=== PATIENT | female | born 1975 | race Caucasian/White ===

== ENCOUNTER 2018-01-01 19:02 | Emergency (ER) | payer MEDICAID ==
[2018-01-01] MEDS ORDERED: Metoclopramide 10 MG/2 ML SDV IVPUSH ONE (19:26)
[2018-01-01] MEDS ORDERED: Sodium Chloride 0.9% 500 ML IV SCH (19:30)
[2018-01-01] MEDS ORDERED: Morphine 4 MG/ML Syringe IVPUSH ONE (20:04)
[2018-01-01] MEDS ORDERED: diphenhydrAMINE 50 MG/ML SDV IVPUSH ONE ×2 (20:12→20:24)
[2018-01-01] MEDS ORDERED: methylPREDNISolone Sodium Succinate 125 MG/2 ML SDV ONE (20:13)
[2018-01-01] MEDS ORDERED: methylPREDNISolone Sodium Succinate 500 MG/4 ML SDV IVPUSH ONE (20:24)
[2018-01-01] MEDS ORDERED: EPINEPHrine 1 MG/ML SDV SUBCUT ONE (20:24)
[2018-01-01 20:30] LABS: CHLORIDE,CL 102 mmol/L (101-111); SODIUM,NA 137 mmol/L (135-145)
--- NOTE | 2018-01-01 20:32 | EDM.PDOC ---
ED HPI GENERAL MEDICAL PROBLEM - General Chief Complaint: Back Pain or Injury Stated Complaint: LEG PAIN [id number] Time Seen by Provider: 01/01/18 20:12 Source of Information: Reports: Patient History Limitations: Reports: No Limitations - History of Present Illness INITIAL COMMENTS - FREE TEXT/NARRATIVE: ED via wheelchair with sister. Patient report numbess and weakness to left leg after slipping and falling on to butt while getting out of car. Reports incontinet of bladder and bowel with fall. Incident at 1pm. Reports remote injury and fixation at L5 S1 with no deficit. Pain to low back. Worse with movement. Back Pain Score (Numeric/FACES): 10 - Related Data Allergies Allergy/AdvReac Type Severity Reaction Status Date / Time gabapentin Allergy Severe Anaphylactic Verified 01/01/18 19:19 Shock ketorolac [From Toradol] Allergy Severe Seizure Verified 01/01/18 19:19 metoclopramide [From Reglan] Allergy Severe Difficulty Verified 01/01/18 20:31 Breathing morphine Allergy Severe Shortness Verified 01/01/18 20:40 of Breath Home Meds: Home Meds Albuterol [Ventolin HFA] 2 puff INH Q4H PRN 01/01/18 [History] Fluticasone/Salmeterol [Advair 500-50] 1 puff INH DAILY 01/01/18 [History] Past Medical History Respiratory History: Reports: Asthma - Past Surgical History Musculoskeletal Surgical History: Reports: Other (See Below) Other Musculoskeletal Surgeries/Procedures:: back surgery Social & Family History - Family History Family Medical History: Noncontributory - Tobacco Use Smoking Status *Q: Never Smoker Second Hand Smoke Exposure: No - Caffeine Use Caffeine Use: Reports: Coffee, Soda, Tea - Recreational Drug Use Recreational Drug Use: No ED ROS GENERAL - Review of Systems Review Of Systems: See Below Constitutional: Reports: No Symptoms HEENT: Reports: No Symptoms Respiratory: Reports: No Symptoms Cardiovascular: Reports: No Symptoms GI/Abdominal: Reports: Nausea, Stool Incontinence, Vomiting : Reports: Incontinence Musculoskeletal: Reports: Back Pain Skin: Reports: No Symptoms Neurological: Reports: Numbness (left leg, upper right thigh), Paresthesia ( left leg), Difficulty Walking. Denies: Pre-Existing Deficit ED EXAM,LOWER BACK PAIN/INJURY - Physical Exam Exam: See Below Exam Limited By: No Limitations General Appearance: Alert, Anxious, Moderate Distress, Obese Eye Exam: Bilateral Eye: EOMI Ears: Normal External Exam Nose: Normal Inspection Throat/Mouth: Normal Inspection Head: Atraumatic, Normocephalic Neck: Normal Inspection Cardiovascular: Normal Peripheral Pulses, Regular Rate, Rhythm GI/Abdominal: Normal Bowel Sounds Rectal (Female) Exam: Other (slight relaxation of rectal tone, stool soft, streaks noted down upper inner thighs) Extremities: Other (flaccid left) Neurological: Alert, Normal Dorsiflexion (right), Normal Plantar Flexion (right) , Normal Reflexes (right), Abnormal Sensation (left left upper anterior thigh), Straight Leg Raise (R), Saddle Anesthesia, Other (foot drop left). No: No Motor /Sensory Deficits Skin Exam: Warm, Dry, Intact, Normal Color Course - Vital Signs Last Recorded V/S: Last Vital Signs Temp 99.2 F 01/01/18 19:10 Pulse 69 01/01/18 19:10 Resp 16 01/01/18 19:10 BP 113/68 01/01/18 19:10 Pulse Ox 95 01/01/18 19:10 - Orders/Labs/Meds Orders: Active Orders 24 hr Category Date Time Status DRUG SCREEN URINE BIORAD [URCHEM] Stat Lab 01/01/18 19:52 Ordered UA W/MICROSCOPIC [URIN] Stat Lab 01/01/18 19:52 Ordered Labs: Laboratory Tests 01/01/18 01/01/18 01/01/18 Range/Units 19:52 19:52 20:04 WBC 13.5 H (5.0-10.0) 10^3/uL RBC 3.64 L (4.2-5.4) 10^6/uL Hgb 11.0 L (12.0-16.0) g/dL Hct 33.9 L (37.0-47.0) % MCV 93.1 (80-100) fL MCH 30.2 (27.0-34.0) pg MCHC 32.4 L (33.0-35.0) g/dL Plt Count 357 (150-450) 10^3/uL Neut % (Auto) 74.7 (42.2-75.2) % Lymph % (Auto) 17.7 L (20.5-50.1) % [place] % (Auto) 7.4 (2-8) % Eos % (Auto) 0.1 L (1.0-3.0) % Baso % (Auto) 0.1 (0.0-1.0) % Add Manual Diff Yes Neutrophils % (Manual) 72 (42-75) % Lymphocytes % (Manual) 17 L (20-50) % Monocytes % (Manual) 11 H (2-8) % Sodium (135-145) mmol/L Potassium (3.6-5.0) mmol/L Chloride (101-111) mmol/L Carbon Dioxide (21.0-31.0) mmol/L Anion Gap BUN (7-18) mg/dL Creatinine (0.6-1.3) mg/dL Est Cr Clr Drug Dosing mL/min Estimated GFR (MDRD) BUN/Creatinine Ratio Glucose (74-105) mg/dL Calcium (8.4-10.2) mg/dl Total Bilirubin (0.2-1.0) mg/dL AST (10-42) IU/L ALT (10-60) IU/L Alkaline Phosphatase (42-121) IU/L Total Protein (6.7-8.2) g/dl Albumin (3.2-5.5) g/dl Globulin Albumin/Globulin Ratio Urine Color Light yellow (YELLOW) Urine Appearance Clear (CLEAR) Urine pH 7.0 (5.0-9.0) Ur Specific [place] 1.010 (1.005-1.030) Urine Protein Negative (NEGATIVE) Urine Glucose (UA) Negative (NEGATIVE) Urine Ketones Negative (NEGATIVE) Urine Occult Blood Negative (NEGATIVE) Urine Nitrite Negative (NEGATIVE) Urine Bilirubin Negative (NEGATIVE) Urine Urobilinogen 0.2 (0.2-1.0) mg/dL Ur Leukocyte Esterase Negative (NEGATIVE) Urine RBC 0-5 /HPF Urine WBC 0-5 (0-5/HPF) /HPF Ur Epithelial Cells Rare /HPF Urine Bacteria Occasional (0-FEW/HPF) /HPF Urine Opiates Screen Negative (NEGATIVE) Ur Oxycodone Screen Negative (NEGATIVE) Urine Methadone Screen Negative (NEGATIVE) Ur Barbiturates Screen Negative (NEGATIVE) U Tricyclic Antidepress Negative (NEGATIVE) Ur Phencyclidine Scrn Negative (NEGATIVE) Ur Amphetamine Screen Negative (NEGATIVE) U Methamphetamines Scrn Negative (NEGATIVE) Urine MDMA Screen Negative (NEGATIVE) U Benzodiazepines Scrn Positive H (NEGATIVE) Urine Cocaine Screen Negative (NEGATIVE) U Marijuana (THC) Screen Positive H (NEGATIVE) 01/01/18 Range/Units 20:04 WBC (5.0-10.0) 10^3/uL RBC (4.2-5.4) 10^6/uL Hgb (12.0-16.0) g/dL Hct (37.0-47.0) % MCV (80-100) fL MCH (27.0-34.0) pg MCHC (33.0-35.0) g/dL Plt Count (150-450) 10^3/uL Neut % (Auto) (42.2-75.2) % Lymph % (Auto) (20.5-50.1) % [place] % (Auto) (2-8) % Eos % (Auto) (1.0-3.0) % Baso % (Auto) (0.0-1.0) % Add Manual Diff Neutrophils % (Manual) (42-75) % Lymphocytes % (Manual) (20-50) % Monocytes % (Manual) (2-8) % Sodium 137 (135-145) mmol/L Potassium 3.9 (3.6-5.0) mmol/L Chloride 102 (101-111) mmol/L Carbon Dioxide 28.0 (21.0-31.0) mmol/L Anion Gap 10.9 BUN 15 (7-18) mg/dL Creatinine 0.7 (0.6-1.3) mg/dL Est Cr Clr Drug Dosing 100.01 mL/min Estimated GFR (MDRD) > 60 BUN/Creatinine Ratio 21.42 Glucose 91 (74-105) mg/dL Calcium 8.8 (8.4-10.2) mg/dl Total Bilirubin 0.5 (0.2-1.0) mg/dL AST 20 (10-42) IU/L ALT 22 (10-60) IU/L Alkaline Phosphatase 56 (42-121) IU/L Total Protein 6.8 (6.7-8.2) g/dl Albumin 3.6 (3.2-5.5) g/dl Globulin 3.2 Albumin/Globulin Ratio 1.13 Urine Color (YELLOW) Urine Appearance (CLEAR) Urine pH (5.0-9.0) Ur Specific [place] (1.005-1.030) Urine Protein (NEGATIVE) Urine Glucose (UA) (NEGATIVE) Urine Ketones (NEGATIVE) Urine Occult Blood (NEGATIVE) Urine Nitrite (NEGATIVE) Urine Bilirubin (NEGATIVE) Urine Urobilinogen (0.2-1.0) mg/dL Ur Leukocyte Esterase (NEGATIVE) Urine RBC /HPF Urine WBC (0-5/HPF) /HPF Ur Epithelial Cells /HPF Urine Bacteria (0-FEW/HPF) /HPF Urine Opiates Screen (NEGATIVE) Ur Oxycodone Screen (NEGATIVE) Urine Methadone Screen (NEGATIVE) Ur Barbiturates Screen (NEGATIVE) U Tricyclic Antidepress (NEGATIVE) Ur Phencyclidine Scrn (NEGATIVE) Ur Amphetamine Screen (NEGATIVE) U Methamphetamines Scrn (NEGATIVE) Urine MDMA Screen (NEGATIVE) U Benzodiazepines Scrn (NEGATIVE) Urine Cocaine Screen (NEGATIVE) U Marijuana (THC) Screen (NEGATIVE) Meds: Medications Discontinued Medications Generic Name Dose Route Start Last Admin Trade Name Freq PRN Reason Stop Dose Admin Diphenhydramine HCl 50 mg 01/01/18 20:24 01/01/18 20:15 Benadryl IVPUSH 01/01/18 20:25 50 mg ONETIME ONE Administration Diphenhydramine HCl 50 mg 01/01/18 20:12 01/01/18 20:33 Benadryl IVPUSH 01/01/18 20:13 Not Given ONETIME ONE Epinephrine HCl 0.5 mg 01/01/18 20:24 01/01/18 20:29 Adrenalin SUBCUT 01/01/18 20:25 0.5 mg ONETIME ONE Administration Sodium Chloride 500 mls @ 500 mls/hr 01/01/18 19:30 01/01/18 20:05 Normal Saline IV 500 mls/hr .BOLUS VERITO Administration Methylprednisolone Sodium Succinate Confirm 01/01/18 20:13 01/01/18 20:25 Solu-Medrol Administered 01/01/18 20:14 Not Given Dose 125 mg .ROUTE .STK-MED ONE Methylprednisolone Sodium Succinate 250 mg 01/01/18 20:24 01/01/18 20:17 Solu-Medrol IVPUSH 01/01/18 20:25 250 mg ONETIME ONE Administration Metoclopramide HCl 10 mg 01/01/18 19:26 01/01/18 20:04 Reglan IVPUSH 01/01/18 19:27 10 mg ONETIME ONE Administration Morphine Sulfate 4 mg 01/01/18 20:04 01/01/18 20:31 Morphine IVPUSH 01/01/18 20:05 4 mg ONETIME ONE Administration - Radiology Interpretation Free Text/Narrative:: CT thoracic and lumbar no acute process. Presence of instrumentation of L5. Intact - Re-Assessments/Exams Free Text/Narrative Re-Assessment/Exam: Patient in CT. C/O of allergic reaction to nausea medication with itching and difficulty breathing and tongue swollen. Neck red, No urticarial rah present Inspratory, expiratory wheeze. Speech thick no obvious swelling. Given epi, solumedrol and benadryl. Symptoms resolution tx via LRAS for further eval and management. 01/02/18 [facility] ED, Dr. Rosa accepting of patient for further evaluation. Follow up with [facility] information relayed that this patient is well known for presentation with similar complaint and similar story, primarily seeking IV Benadryl. Patient also has appeared to simulate allergic reactions with wheezing and talking though tongue enlarged. Departure - Departure Time of Disposition: 01:25 Disposition: DC/Tfer to Acute Hospital 02 Condition: Good Clinical Impression: Saddle anesthesia Back pain Qualifiers: Back pain location: low back pain Chronicity: acute Back pain laterality: unspecified Sciatica presence: without sciatica Qualified Code(s): M54.5 - Low back pain Fall Qualifiers: Encounter type: initial encounter Qualified Code(s): W19.XXXA - Unspecified fall, initial encounter - Discharge Information Referrals: PCP,None [Primary Care Provider] - Forms: ED Department Discharge Additional Instructions: follow up with Primary care this week - My Orders Last 24 Hours: My Active Orders 01/01/18 19:52 DRUG SCREEN URINE BIORAD [URCHEM] Stat UA W/MICROSCOPIC [URIN] Stat - Assessment/Plan Last 24 Hours: My Active Orders 01/01/18 19:52 DRUG SCREEN URINE BIORAD [URCHEM] Stat UA W/MICROSCOPIC [URIN] Stat
== END 2018-01-01 20:38 ==
LOC: DL.ED 19:02
DX: M54.5 Low back pain (principal); R20.0 Anesthesia of skin; Z88.8 Allergy status to other drugs, medicaments and biological substances; Z88.6 Allergy status to analgesic agent; Z88.5 Allergy status to narcotic agent; W01.0XXA Fall on same level from slipping, tripping and stumbling without subsequent striking against object, initial encounter
CPT/HCPCS: 36415; 72128; 72131; 80053; 80305; 81001; 85025; 96372; 96374; 96375; 99285; J0171; J1200; J2270; J2765; J2930; J7040